=== PATIENT | male | born 1995 | race Caucasian/White ===

== ENCOUNTER 2024-01-24 18:39 | Emergency (ER) | payer OTHER ==
[~2024-01-24] VITALS: Ht 182.9 cm; Wt 145.1 kg
[2024-01-24 19:24] VITALS: BP 119/65; PULSE 68; RESP 14; TEMP 97.3; O2SAT 98
[2024-01-24] MEDS: KETOROLAC 60 MG/2 ML VIAL IM ONE (23:28)
[2024-01-24] MEDS ORDERED: NAPR-337 PO (23:59)
[2024-01-25 00:10] VITALS: BP 121/67; PULSE 72; RESP 16; TEMP 97.8; O2SAT 98
== END 2024-01-25 00:10 | disposition home or self-care (01) ==
LOC: MED 18:39
DX: S93.401A Sprain of unspecified ligament of right ankle, initial encounter (principal); Z79.899 Other long term (current) drug therapy; V29.99XA Rider (driver) (passenger) of other motorcycle injured in unspecified traffic accident, initial encounter; Y93.89 Activity, other specified; Y92.410 Unspecified street and highway as the place of occurrence of the external cause; Y99.8 Other external cause status
CPT/HCPCS: 73610; 96372; 99283; J1885